=== PATIENT | female | born 1960 | race Asian ===

== ENCOUNTER 2019-08-28 05:48 | Day surgery (SDC) | payer OTHER ==
[~2019-08-28] VITALS: Ht 162.6 cm; Wt 63.5 kg
[2019-08-28] MEDS ORDERED: ATOR10TA PO (07:02)
[2019-08-28] MEDS ORDERED: LOSA50TA66 PO (07:02)
[2019-08-28] MEDS ORDERED: fentaNYL 0.05 MG/ML VIAL ONE (07:49)
[2019-08-28] MEDS ORDERED: LIDOCAINE 2% 100 MG/5 ML UJET TP ONE (07:49)
[2019-08-28] MEDS ORDERED: fentaNYL 0.05 MG/ML VIAL IVP ONE (09:10)
== END 2019-08-28 08:45 | disposition home or self-care (01) ==
LOC: MOR 05:48 → MMU 06:05 → MOR 08:45
PROVIDERS: ATTEND Internal Medicine Gastroenterology
DX: R10.31 Right lower quadrant pain (principal); D12.7 Benign neoplasm of rectosigmoid junction; I10 Essential (primary) hypertension; E78.5 Hyperlipidemia, unspecified; Z90.710 Acquired absence of both cervix and uterus; Z98.890 Other specified postprocedural states; Z87.19 Personal history of other diseases of the digestive system; Z90.89 Acquired absence of other organs; Z79.899 Other long term (current) drug therapy
CPT/HCPCS: 45385; J3010